=== PATIENT | female | born 2000 | race Caucasian/White ===

== ENCOUNTER 2020-12-01 11:40 | Observation (INO) ==
[2020-12-01] MEDS ORDERED: ONDANSETRON INJ 2 MG/ML 2 ML VIAL IV STA (12:09)
[2020-12-01] MEDS ORDERED: SODIUM CHLORIDE 0.9% 1000ML 1,000 ML IV STA (12:09)
--- NOTE | 2020-12-01 12:14 | Emergency Department Note ---
History of Present Illness General Chief complaint: Vomiting Stated complaint: VOMTING,JUST RELEASED FROM [facility] Time Seen by Provider: 12/01/20 11:55 History of Present Illness Maximum Pain Intensity: 6 20-year-old female who presents to the emergency department with complaint of nausea and vomiting since being released from the [facility] at 11 AM. The patient reports that she woke up this morning around 5 AM with nausea and vomiting. She denies any abdominal pain, urinary symptoms, constipation or diarrhea. She denies eating any unusual foods. Patient denies alcohol or illicit drug use while at the [facility]. Patient denies . The patient denies any history of GI issues, and currently rates her discomfort a 6 out of 10. Home Medications Medication Instructions Recorded Confirmed Type buspirone [BuSpar] 5 mg PO TID 12/01/20 12/01/20 History hydroxyzine HCl [Atarax] 10 mg PO DIRECTED 12/01/20 12/01/20 History melatonin 9 mg PO HS PRN 12/01/20 12/01/20 History venlafaxine [Effexor] 75 mg PO QAM 12/01/20 12/01/20 History Allergies Allergy/AdvReac Type Severity Reaction Status Date / Time No Known Allergies Allergy Unverified 12/01/20 14:23 Past Med/Surg History Medical History Anxiety Smoker Social History Smoking Status: Current every day smoker marital status: Single current occupational status: unemployed Feels Safe at Home: Yes Review of Systems 10 system review was performed and was negative except for pertinent positives and negatives as indicated in history of present illness Physical Exam Vital Signs Vital Signs - 24 hr 12/01/20 11:53 12/01/20 13:55 12/01/20 16:17 Temperature 36.0 C L Temperature Source Temporal Artery Scan Pulse Rate 75 Pulse Rate [Right Finger] 64 78 Respiratory Rate 21 20 20 Respiratory Effort / Characteristics Short of Breath Non-Labored Respiratory Depth Shallow Normal Blood Pressure 130/84 Blood Pressure [Right Arm] 125/79 129/71 Blood Pressure Mean 99 Blood Pressure Mean [Right Arm] 94 90 Pulse Oximetry 93 100 100 Oxygen Delivery Method Room Air Room Air Room Air Sepsis Recent Fever Within 48 Hours Yes Sepsis New/Unexplained Change in Mental Status No Sepsis Action Taken by Nursing No Action Required 12/01/20 17:59 Temperature Temperature Source Pulse Rate Pulse Rate [Right Finger] 62 Respiratory Rate 20 Respiratory Effort / Characteristics Respiratory Depth Blood Pressure Blood Pressure [Right Arm] Blood Pressure Mean Blood Pressure Mean [Right Arm] Pulse Oximetry 100 Oxygen Delivery Method Room Air Sepsis Recent Fever Within 48 Hours Sepsis New/Unexplained Change in Mental Status Sepsis Action Taken by Nursing CONSTITUTIONAL: Healthy and well nourished. Patient appears in moderate discomfort with an emesis bag. HEENT: Normocephalic, atraumatic. No scleral icterus or conjunctival injection/pallor. Mucous membranes are dry. NECK: Full active range of motion without discomfort. LYMPHATICS: No cervical chain adenopathy. RESPIRATORY: Clear to auscultation bilaterally with no wheezing, crackles, rhonchi or stridor. CARDIOVASCULAR: Regular rate and rhythm with no murmurs, rubs or gallops. GASTROINTESTINAL: Bowel sounds present in all quadrants. Patient has minimal and generalized abdominal tenderness to palpation. Negative McBurney's point tenderness. Negative CVA tenderness. MUSCULOSKELETAL: Full range of motion of all joints without discomfort. INTEGUMENTARY: No rash or other significant dermatologic conditions noted. HEMATOLOGIC: No ecchymosis or petechiae. PSYCHIATRIC: Flat affect. NEUROLOGIC: No focal neurologic deficits noted. Course Course Patient history and physical exam were performed. Nurses notes were reviewed. Vital signs were reviewed and were grossly normal. I also reviewed discharge paperwork that accompanies the patient. It appears that the patient was at the [facility] for 6 days, receiving treatment for anxiety. Patient did receive discharge prescriptions for BuSpar 5 mg 3 times daily, melatonin 9 mg nightly, Effexor 75 mg daily and Atarax 10 mg twice daily, and 30 mg at bedtime. IV access was established, and labs are drawn. The patient was hydrated with a liter normal saline, and administered IV Zofran for nausea. Shortly after the patient was administered the IV Zofran, the patient told her nurse that she would like to have something for anxiety. The patient was administered IV Ativan. Review of labs shows a moderate leukocytosis with a white count of over 16,000, left shift and 3% bands. Further review of labs shows a relatively normal CMP, LFTs and lipase. Serum was negative. The patient was unable to provide a urine sample throughout the early portion of her work-up. I was then contacted by the nurse reporting that she was still nauseated, and has requested Vistaril. The patient was administered IM Vistaril, and IV Benadryl. Given the patient's persistent symptoms, and elevated white count, I did recommend imaging of the abdomen to rule out other acute etiologies, and the patient was in agreement. CT with IV contrast of the abdomen and pelvis showed evidence for an uncomplicated appendicitis. The patient was unable to provide a urine sample. The case was discussed with Dr. Fabian, ED attending physician, who agrees with surgical consultation. The case was then discussed with Dr. Luevano (Jagjit Buck PA-C). Because several patients are requiring surgical intervention this afternoon, the patient was ordered Mefoxin IV antibiotics. COVID-19 testing was also ordered. Prior to the patient going to surgery, nursing staff reported that she was still complaining of nausea, and was administered IV Phenergan. Administered Medications Discontinued Medications Diphenhydramine HCl (Diphenhydramine 50 Mg/Ml Vial) 25 mg IV NOW STA Stop: 12/01/20 14:12 Last Admin: 12/01/20 14:16 Dose: 25 mg Documented by: [id number] Hydroxyzine HCl (Hydroxyzine Hcl Im Soln 50 Mg/Ml 1 Ml Vial) 50 mg IM NOW STA Stop: 12/01/20 14:12 Last Admin: 12/01/20 14:18 Dose: 50 mg Documented by: [id number] Sodium Chloride (Nss 1000ml) 1,000 mls @ 999 mls/hr IV .Q1H1M STA Stop: 12/01/20 13:09 Last Infusion: 12/01/20 18:05 Dose: 0 mls/hr Documented by: [id number] Admin: 12/01/20 12:36 Dose: 999 mls/hr Documented by: [id number] Lorazepam (Ativan) 1 mg in 2 mls @ 2 mls/min IV NOW STA Stop: 12/01/20 12:50 Last Admin: 12/01/20 13:03 Dose: 2 mls/min Documented by: [id number] Cefoxitin Sodium (Mefoxin) 2,000 mg in 60 mls @ 100 mls/hr IV NOW STA Stop: 12/01/20 16:32 Last Infusion: 12/01/20 18:00 Dose: 0 mls/hr Documented by: [id number] Admin: 12/01/20 16:34 Dose: 100 mls/hr Documented by: [id number] Promethazine HCl (Phenergan) 25 mg in 51 mls @ 204 mls/hr IV NOW STA Stop: 12/01/20 17:58 Last Admin: 12/01/20 18:00 Dose: 204 mls/hr Documented by: [id number] Ioversol (Optiray 300 100ml) 87 ml IV ONCE ONE Stop: 12/01/20 15:24 Last Admin: 12/01/20 15:23 Dose: 87 ml Documented by: [id number] Ondansetron HCl (Ondansetron Inj 2 Mg/Ml 2 Ml Vial) 4 mg IV NOW STA Stop: 12/01/20 12:10 Last Admin: 12/01/20 12:36 Dose: 4 mg Documented by: [id number] Medical Decision Making Medical Records Attestation: I reviewed the patient's medical records. Home Medications Current Medication List: was personally reviewed by me Laboratory Data Attestation: I reviewed the patient's lab results. Result diagrams: 12/01/20 12:23 12/01/20 12:23 Lab Results 12/01/20 12/01/20 12/01/20 Range/Units 12:23 12:23 12:23 WBC 16.25 H (4.8-10.8) K/uL RBC 4.67 (4.2-5.4) M/uL Hgb 13.8 (12.0-16.0) g/dL Hct 41.6 (37-47) % MCV 89.1 (80-100) fL MCH 29.6 (25-34) pg MCHC 33.2 (32-36) g/dL RDW Std Deviation 42.6 (36.4-46.3) fL RDW Coeff of Laura 13.1 (11.5-14.5) % Plt Count 270 (130-400) K/uL MPV 11.4 H (7.4-10.4) fL Immature Gran % (Auto) 0.2 % Neut % (Auto) 89.9 % Lymph % (Auto) 6.3 % [place] % (Auto) 3.4 % Eos % (Auto) 0.1 % Baso % (Auto) 0.1 % Neut # (Auto) 14.61 H (1.4-6.5) K/uL Lymph # (Auto) 1.02 L (1.2-3.4) K/uL [place] # (Auto) 0.55 (0.11-0.59) K/uL Eos # (Auto) 0.02 (0-0.5) K/uL Baso # (Auto) 0.02 (0-0.2) K/uL Immature Gran # (Auto) 0.03 H (0.00-0.02) K/uL Sodium 141 (136-145) mmol/L Potassium 3.6 (3.5-5.1) mmol/L Chloride 108 H (98-107) mmol/L Carbon Dioxide 25 (21-32) mmol/L Anion Gap 8.0 (3-11) BUN 15 (7-18) mg/dl Creatinine 0.69 (0.6-1.2) mg/dl Est Cr Clr Drug Dosing Not Reportable Est GFR ( Amer) 144.2 ml/min Est GFR (Non-Af Amer) 124.4 ml/min BUN/Creatinine Ratio 21.3 H (10-20) Glucose 111 H (70-99) mg/dl Calcium 10.0 (8.5-10.1) mg/dl Total Bilirubin 1.1 H (0.2-1) mg/dl AST 15 (15-37) U/L ALT 19 (12-78) U/L Alkaline Phosphatase 69 (45-117) U/L Total Protein 8.5 H (6.4-8.2) gm/dl Albumin 4.7 (3.4-5.0) gm/dl Globulin 3.8 (2.5-4.0) gm/dl Albumin/Globulin Ratio 1.2 (0.9-2) Lipase 91 (73-393) U/L HCG, Qual Negative (Negative) COVID-19 Eval Order SARS-CoV-2 (PCR) (Negative) 12/01/20 12/01/20 Range/Units 16:40 16:40 WBC (4.8-10.8) K/uL RBC (4.2-5.4) M/uL Hgb (12.0-16.0) g/dL Hct (37-47) % MCV (80-100) fL MCH (25-34) pg MCHC (32-36) g/dL RDW Std Deviation (36.4-46.3) fL RDW Coeff of Laura (11.5-14.5) % Plt Count (130-400) K/uL MPV (7.4-10.4) fL Immature Gran % (Auto) % Neut % (Auto) % Lymph % (Auto) % [place] % (Auto) % Eos % (Auto) % Baso % (Auto) % Neut # (Auto) (1.4-6.5) K/uL Lymph # (Auto) (1.2-3.4) K/uL [place] # (Auto) (0.11-0.59) K/uL Eos # (Auto) (0-0.5) K/uL Baso # (Auto) (0-0.2) K/uL Immature Gran # (Auto) (0.00-0.02) K/uL Sodium (136-145) mmol/L Potassium (3.5-5.1) mmol/L Chloride (98-107) mmol/L Carbon Dioxide (21-32) mmol/L Anion Gap (3-11) BUN (7-18) mg/dl Creatinine (0.6-1.2) mg/dl Est Cr Clr Drug Dosing Est GFR ( Amer) ml/min Est GFR (Non-Af Amer) ml/min BUN/Creatinine Ratio (10-20) Glucose (70-99) mg/dl Calcium (8.5-10.1) mg/dl Total Bilirubin (0.2-1) mg/dl AST (15-37) U/L ALT (12-78) U/L Alkaline Phosphatase (45-117) U/L Total Protein (6.4-8.2) gm/dl Albumin (3.4-5.0) gm/dl Globulin (2.5-4.0) gm/dl Albumin/Globulin Ratio (0.9-2) Lipase (73-393) U/L HCG, Qual (Negative) COVID-19 Eval Order Covid19 at [facility] SARS-CoV-2 (PCR) NEGATIVE (Negative) Imaging Data Attestation: I personally reviewed and interpreted this imaging study as follows: My Impression: My interpretation of a CT with IV contrast of the abdomen and pelvis shows evidence for an uncomplicated acute appendicitis. No other acute intra-abdominal findings are noted. Radiologist report was also reviewed. Radiologist's Impression: Abdomen/Pelvis CT 12/01/20 14:44 CT SCAN OF THE ABDOMEN AND PELVIS WITH IV CONTRAST CLINICAL HISTORY: Nausea and vomiting. Leukocytosis. COMPARISON STUDY: No priors. TECHNIQUE: Following the IV administration of 87 cc of Optiray 300, CT scan of the abdomen and pelvis is performed from the lung bases to the proximal femora. Images are reviewed in the axial, sagittal, and coronal planes. IV contrast was administered without complication. A dose lowering technique was utilized adhering to the principles of ALARA. The examination is modestly degraded by motion artifact. CT DOSE: 325.85 mGy.cm FINDINGS: Lung bases: The heart is normal in size and without pericardial effusion. The lung bases are clear. Liver: The contrast-enhanced liver is normal in size, contour, and attenuation. There is no intrahepatic biliary ductal dilatation. The hepatic veins and portal veins are patent. Gallbladder: Unremarkable. Spleen: Normal in size and attenuation. Pancreas: Unremarkable. Adrenal glands: Unremarkable. Kidneys: The contrast enhanced kidneys are normal in size and without hydronephrosis. The kidneys enhance symmetrically. Abdominal vasculature: The abdominal aorta is normal in course and caliber. Bowel: There is no bowel obstruction. The appendix is distended and fluid- filled measuring up to 9 mm in diameter as seen on image #322. The appendiceal wall is thickened and hyperemic and there is peripheral appendiceal inflammation. Findings are consistent with acute appendicitis. No organized fluid collection is seen to indicate abscess. Peritoneum: There is no intraperitoneal free air or abdominal ascites. Lymphadenopathy: None. Pelvic viscera: The bladder, uterus, and adnexa are normal as visualized. Skeletal structures: No lytic or blastic lesions are seen. IMPRESSION: 1. Findings are consistent with acute appendicitis. 2. There is no evidence of abscess or perforation. ACT 112: Negative or not required by law. Electronically signed by: Velasquez Hilario M.D. 12/01/2020 3:30 PM Prescription Drug Monitoring [place] Drug Monitoring Program reviewed and no issues identified Blood Pressure Blood Pressure Findings: Normal blood pressure MDM Narrative Patient presents to the emergency department with complaint of nausea and vomiting. The patient really did not complain of any abdominal pain on initial exam, but did have generalized abdominal tenderness to palpation. The patient does have a notable leukocytosis, but is afebrile. The patient has received multiple rounds of IV antiemetics. CT imaging does show evidence for an acute appendicitis. Patient denies any urinary symptoms, and although she has been unable to provide a urine sample, I do not suspect UTI. Urine was n egative. Additional laboratory studies are not suggestive of pancreatitis, cholecystitis or hepatitis. Impression & Plan Acute appendicitis Discharge Plan Visit Data Chief Complaint: Vomiting Stated Complaint: VOMTING,JUST RELEASED FROM [facility] ED Provider: Prakash Fabian ED Midlevel Provider: Bassam Avila Discharge Problem: Acute appendicitis Discharge Instructions Interventions: ED Discharge Assessment Last Done: 12/01/20 18:14 Forms Stand Alone Forms: My [facility] Prescriptions Prescriptions: No Action buspirone [BuSpar] 5 mg Tablet 5 mg PO TID RF: 0 venlafaxine [Effexor] 75 mg Tablet 75 mg PO QAM RF: 0 melatonin 3 mg Tablet 9 mg PO HS PRN (Reason: Sleep) RF: 0 hydroxyzine HCl [Atarax] 10 mg Tablet 10 mg PO DIRECTED RF: 0 Referrals Referrals: PCP,NO [Primary Care Provider] - Discharge Problem: Acute appendicitis Qualifiers: Acute appendicitis type: with localized peritonitis Appendicitis gangrene presence: without gangrene Appendicitis perforation presence: without perforation Appendicitis abscess presence: without abscess Qualified Code(s): K 35.30 - Acute appendicitis with localized peritonitis, without perforation or gangrene
[2020-12-01 12:34] LABS: Basophils # (auto) 0.02 K/uL (0-0.2); Basophils % (auto) 0.1 %; Eosinophils # (auto) 0.02 K/uL (0-0.5); Eosinophils % (auto) 0.1 %; Hematocrit (blood only) 41.6 % (37-47); Hemoglobin 13.8 g/dL (12.0-16.0); Immature Granulocytes # (auto) 0.03 K/uL (0.00-0.02); Immature Granulocytes % (auto) 0.2 %; Lymphocytes # (auto) 1.02 K/uL (1.2-3.4); Lymphocytes % (auto) 6.3 %; Mean Corpuscular Hemoglobin 29.6 pg (25-34); Mean Corpuscular Hgb Conc 33.2 g/dL (32-36); Mean Corpuscular Volume 89.1 fL (80-100); Mean Platelet Volume 11.4 fL (7.4-10.4); Monocytes # (auto) 0.55 K/uL (0.11-0.59); Monocytes % (auto) 3.4 %; Neutrophils # (auto) 14.61 K/uL (1.4-6.5); Neutrophils % (auto) 89.9 %; Platelet Count 270 K/uL (130-400); RDW Coefficient of Variation 13.1 % (11.5-14.5); RDW Standard Deviation 42.6 fL (36.4-46.3); Red Blood Count 4.67 M/uL (4.2-5.4); White Blood Count 16.25 K/uL (4.8-10.8)
[2020-12-01] MEDS ORDERED: LORazepam 1 MG/2 ML VIAL IV STA (12:49)
[2020-12-01 12:53] LABS: Alanine Aminotransferase 19 U/L (12-78); Albumin Level 4.7 gm/dl (3.4-5.0); Aspartate Aminotransferase 15 U/L (15-37); BUN Creatinine Ratio 21.3 (10-20); Blood Urea Nitrogen 15 mg/dl (7-18); Carbon Dioxide 25 mmol/L (21-32); Chloride 108 mmol/L (98-107); Est GFR (African American) 144.2 ml/min; Est GFR (Non-African American) 124.4 ml/min; Glucose 111 mg/dl (70-99); Lipase 91 U/L (73-393); Potassium 3.6 mmol/L (3.5-5.1); Sodium 141 mmol/L (136-145)
[2020-12-01 12:54] LABS: Pregnancy Test, Serum Negative (Negative)
[2020-12-01 12:56] LABS: Albumin Globulin Ratio 1.2 (0.9-2); Alkaline Phosphatase 69 U/L (45-117); Bilirubin,Total 1.1 mg/dl (0.2-1); Globulin 3.8 gm/dl (2.5-4.0); Total Protein 8.5 gm/dl (6.4-8.2)
[2020-12-01] MEDS ORDERED: diphenhydrAMINE 50 MG/ML VIAL IV STA (14:11)
[2020-12-01] MEDS ORDERED: hydrOXYzine HCL IM SOLN 50 MG/ML 1 ML VIAL IM STA (14:11)
[2020-12-01] MEDS ORDERED: OPTIRAY 300 100mL IV ONE (15:23)
--- NOTE | 2020-12-01 15:32 | CT Scan Report ---
CT SCAN OF THE ABDOMEN AND PELVIS WITH IV CONTRAST CLINICAL HISTORY: Nausea and vomiting. Leukocytosis. COMPARISON STUDY: No priors. TECHNIQUE: Following the IV administration of 87 cc of Optiray 300, CT scan of the abdomen and pelvi s is performed from the lung bases to the proximal femora. Images are reviewed in the axial, sagittal , and coronal planes. IV contrast was administered without complication. A dose lowering technique wa s utilized adhering to the principles of ALARA. The examination is modestly degraded by motion artifa ct. CT DOSE: 325.85 mGy.cm FINDINGS: Lung bases: The heart is normal in size and without pericardial effusion. The lung bases are clear. Liver: The contrast-enhanced liver is normal in size, contour, and attenuation. There is no intrahepa tic biliary ductal dilatation. The hepatic veins and portal veins are patent. Gallbladder: Unremarkable. Spleen: Normal in size and attenuation. Pancreas: Unremarkable. Adrenal glands: Unremarkable. Kidneys: The contrast enhanced kidneys are normal in size and without hydronephrosis. The kidneys enh ance symmetrically. Abdominal vasculature: The abdominal aorta is normal in course and caliber. Bowel: There is no bowel obstruction. The appendix is distended and fluid-filled measuring up to 9 m m in diameter as seen on image #322. The appendiceal wall is thickened and hyperemic and there is per ipheral appendiceal inflammation. Findings are consistent with acute appendicitis. No organized fluid collection is seen to indicate abscess. Peritoneum: There is no intraperitoneal free air or abdominal ascites. Lymphadenopathy: None. Pelvic viscera: The bladder, uterus, and adnexa are normal as visualized. Skeletal structures: No lytic or blastic lesions are seen. IMPRESSION: 1. Findings are consistent with acute appendicitis. 2. There is no evidence of abscess or perforation. ACT 112: Negative or not required by law. Electronically signed by: Velasquez Hilario M.D. 12/01/2020 3:30 PM
[2020-12-01] MEDS ORDERED: cefOXitin 2,000 MG/60 ML BAG IV STA (15:57)
--- NOTE | 2020-12-01 16:29 | Anesthesiology Consultation ---
Date of Service December 01, 2020 History Surgery Operation Date: 12/01/20 09:40 Proposed Procedures p Laparoscopic Cholecystectomy - Isidro Luevano DO, FACS Height/Weight Height: 5 ft 4 in Weight: 58.967 kg Allergies Allergy/AdvReac Type Severity Reaction Status Date / Time No Known Allergies Allergy Unverified 12/01/20 14:23 Medications Home Medications Medication Instructions Recorded Confirmed Last Taken buspirone [BuSpar] 5 mg PO TID 12/01/20 12/01/20 12/01/20 hydroxyzine HCl [Atarax] 10 mg PO DIRECTED 12/01/20 12/01/20 12/01/20 melatonin 9 mg PO HS PRN 12/01/20 12/01/20 Unknown venlafaxine [Effexor] 75 mg PO QAM 12/01/20 12/01/20 12/01/20 Social History Smoking Status: Current every day smoker Physical Exam Vital Signs Last Vital Signs Temp 36.0 C L 12/01/20 11:53 Pulse 78 12/01/20 16:17 Resp 20 12/01/20 16:17 BP 129/71 12/01/20 16:17 Pulse Ox 100 12/01/20 16:17 Testing Laboratory Results 12/01/20 12:23 12/01/20 12:23
--- NOTE | 2020-12-01 16:35 | History & Physical Report ---
Date of Service December 01, 2020 Assessment & Plan (1) Acute appendicitis: This is a 20y F with recent release from the [facility] who presents to the [facility] ED on 12/01/20 with complaints of abdominal pain, nausea/vomiting. Workup in the ER with a CT a/p is consistent with acute appendicitis. WBC 16. VSS. Patient is tender to palpation in the RLQ. Discussions in place with patient and we will proceed with taking patient to the OR for a laparoscopic appendectomy. Plan to keep NPO with IVF. Pre-op abx will be given. Covid test is ordered and pending. Dr. Luevano has obtained consent. History of Present Illness Primary Care Provider: NO PCP This is a 20y F with recent release from the [facility] who presents to the [facility] ED on 12/01/20 with complaints of abdominal pain, nausea/vomiting. Patient states her abdominal pain woke up her this morning around 5am. She says the pain is "all-over" the abdomen, but when asked to point where it's the worst she points towards her RLQ. In the ER patient underwent a CT a/p that showed findings consistent with acute appendicitis. Patient denies any prior history of abdominal surgery. Says she does not smoke and drinks "a little bit" of alcohol on occasion. Allergies Allergy/AdvReac Type Severity Reaction Status Date / Time No Known Allergies Allergy Unverified 12/01/20 14:23 Home Medications Medication Instructions Recorded Confirmed Type buspirone [BuSpar] 5 mg PO TID 12/01/20 12/01/20 History hydroxyzine HCl [Atarax] 10 mg PO DIRECTED 12/01/20 12/01/20 History melatonin 9 mg PO HS PRN 12/01/20 12/01/20 History venlafaxine [Effexor] 75 mg PO QAM 12/01/20 12/01/20 History Past Med/Surg History Social History Smoking Status: Current every day smoker Feels Safe at Home: Yes Review of Systems Constitutional: no fever and no chills Respiratory: no dyspnea Gastrointestinal: + abdominal pain, + nausea and + vomiting Physical Exam Physical Exam: awake Constitutional: uncomfortable appearing Respiratory: normal respiratory effort Gastrointestinal (Abdomen): Percussion/Palpation: + abdomen tender (ttp in the rlq) and abdomen soft Results & Data Results & Data ([facility]) Vital Signs (Past 12 Hours) Vital Signs Temp Pulse Pulse Resp BP BP Pulse Ox 12/01/20 16:17 78 20 129/71 100 12/01/20 13:55 64 20 125/79 100 12/01/20 11:53 36.0 C L 75 21 130/[address] SCAN OF THE ABDOMEN AND PELVIS WITH IV CONTRAST CLINICAL HISTORY: Nausea and vomiting. Leukocytosis. COMPARISON STUDY: No priors. TECHNIQUE: Following the IV administration of 87 cc of Optiray 300, CT scan of the abdomen and pelvis is performed from the lung bases to the proximal femora. Images are reviewed in the axial, sagittal, and coronal planes. IV contrast was administered without complication. A dose lowering technique was utilized adhering to the principles of ALARA. The examination is modestly degraded by motion artifact. CT DOSE: 325.85 mGy.cm FINDINGS: Lung bases: The heart is normal in size and without pericardial effusion. The lung bases are clear. Liver: The contrast-enhanced liver is normal in size, contour, and attenuation. There is no intrahepatic biliary ductal dilatation. The hepatic veins and portal veins are patent. Gallbladder: Unremarkable. Spleen: Normal in size and attenuation. Pancreas: Unremarkable. Adrenal glands: Unremarkable. Kidneys: The contrast enhanced kidneys are normal in size and without hydronephrosis. The kidneys enhance symmetrically. Abdominal vasculature: The abdominal aorta is normal in course and caliber. Bowel: There is no bowel obstruction. The appendix is distended and fluid- filled measuring up to 9 mm in diameter as seen on image #322. The appendiceal wall is thickened and hyperemic and there is peripheral appendiceal inflammation. Findings are consistent with acute appendicitis. No organized fluid collection is seen to indicate abscess. Peritoneum: There is no intraperitoneal free air or abdominal ascites. Lymphadenopathy: None. Pelvic viscera: The bladder, uterus, and adnexa are normal as visualized. Skeletal structures: No lytic or blastic lesions are seen. IMPRESSION: 1. Findings are consistent with acute appendicitis. 2. There is no evidence of abscess or perforation. ACT 112: Negative or not required by law. Electronically signed by: Velasquez Hilario M.D. 12/01/2020 3:30 PM Supervising Physician Co-Signing Physician Notes Patient seen and examined, labs and imaging reviewed, agree with above. 20-year-old female with CT evidence of acute appendicitis. On exam she is tender to palpation in the right lower quadrant with localized guarding. I personally reviewed the CT scan and agree with the assessment of acute appendicitis. Plan for laparoscopic appendectomy. Risk of the procedure were reviewed to include but not limited to bleeding, infection, normal appendix, conversion to open, damage to surrounding structures, need for future or more extensive surgery, and the risk of anesthesia. Preoperative antibiotics given. The diagnosis, details of the procedure and recovery, and plan of care discussed with the patient, all questions were answered, the patient expressed understanding agrees with plan of care as stated PG Care Time/CCT Total # of Minutes Spent Total Time Spent with Patient: Total time spent is greater than 50% in coordination of care (as documented) at patient's floor/unit and/or counseling patient: Coding Level of Care Code 62348 Initial Inpt Care Lvl 2 Diagnoses Acute appendicitis K35.30 Acute appendicitis type: with localized peritonitis Appendicitis abscess presence: without abscess Appendicitis gangrene presence: without gangrene Appendicitis perforation presence: without perforation (1) Acute appendicitis Acute appendicitis type: with localized peritonitis Appendicitis abscess presence: without abscess Appendicitis gangrene presence: without gangrene Appendicitis perforation presence: without perforation Qualified Code(s): K35.30 - Acute appendicitis with localized peritonitis, without perforation or gangrene
[2020-12-01] MEDS ORDERED: BUPIVACAINE 0.5 % 5 MG/1 ML MPF 30ML VIAL ONE (17:14)
[2020-12-01] MEDS ORDERED: ONDANSETRON INJ 2 MG/ML 2 ML VIAL ONE ×2 (17:24→20:05)
[2020-12-01] MEDS ORDERED: LIDOCAINE 2% 2 ML VIAL/AMP(20MG/ML) INFIL ONE (17:24)
[2020-12-01] MEDS ORDERED: ROCURONIUM BROMIDE 10 MG/ML 5 ML VIAL IV ONE (17:24)
[2020-12-01] MEDS ORDERED: LARYING-O-JET KIT (LTA) ONE (17:24)
[2020-12-01] MEDS ORDERED: PROPOFOL IV EMULSION 10 MG/ML 20 ML VIAL IV ONE (17:24)
[2020-12-01] MEDS ORDERED: DEXAMETHASONE SOD INJ 4 MG/ML VIAL ONE (17:24)
[2020-12-01] MEDS ORDERED: PROMETHAZINE 25 MG/51 ML BAG IV STA (17:44)
[2020-12-01] MEDS ORDERED: ATROPINE SULFATE 0.1 MG/ML 10ML SYR IV PRN ×2 (18:33→20:10)
[2020-12-01] MEDS ORDERED: LABETALOL HCL IV 5 MG/ML 20ML IV PRN (18:33)
[2020-12-01] MEDS ORDERED: ONDANSETRON INJ 2 MG/ML 2 ML VIAL IV PRN ×2 (18:33→20:10)
[2020-12-01] MEDS ORDERED: MEPERIDINE HCL 25 MG/ML CARP/VIAL IV PRN (18:33)
[2020-12-01] MEDS ORDERED: MIDAZOLAM HCL 1 MG/ML 2ML VIAL ONE (18:33)
[2020-12-01] MEDS ORDERED: fentaNYL citrate 100 MCG/2 ML VIAL ONE ×3 (18:33→20:13)
[2020-12-01] MEDS ORDERED: HYDROmorphone INJ 1 MG/ML SYRINGE IV PRN (18:33)
[2020-12-01] MEDS ORDERED: fentaNYL citrate 100 MCG/2 ML VIAL IV PRN (18:33)
[2020-12-01] MEDS ORDERED: PHENYLEPHRINE 100MCG/ML 5ML SYR IV PRN (18:33)
[2020-12-01] MEDS ORDERED: ePHEDrine sulfate 50 MG/ML AMP IV PRN (18:33)
[2020-12-01] MEDS ORDERED: LACTATED RINGER'S 1,000 ML IV SCH (19:00)
--- NOTE | 2020-12-01 19:37 | Operative Report ---
PG Post Operative Report Pre & Post Diagnosis Operation Date: 12/01/20 09:40 Pre-Op Diagnosis: Acute appendicitis Post-Op Diagnosis: Acute appendicitis I identified the patient and participated in the time-out.: Yes Procedure Operation Date: 12/01/20 09:40 Actual Procedures p Laparoscopic Appendectomy(Not Applicable) - Isidro Luevano DO, FACS Surgeon Isidro Luevano DO, FACS Compensation Manager Denilson Angel Estimated Blood Loss 5 Findings Consistent with Post-Op Diagnosis Acute nonperforated appendicitis. Good hemostasis. Specimens Appendix Anesthesia Type General Complications none Disposition Accompanied Patient To Recovery: No Disposition: Recovery Room Indications 20-year-old female presented with signs symptoms of appendicitis confirmed by CT scan. Plan for laparoscopic appendectomy. The risks of the procedure were discussed, all questions were answered, and the patient agreed to proceed with surgery as planned. Description of Procedure The patient was properly identified, consented, and taken to the operating room where she was placed in the supine position. General endotracheal anesthesia was induced. SCDs and a safety belt were placed. Preoperative antibiotics were administered. A Ross catheter was not placed. The patient's abdomen was prepped and draped in the standard sterile fashion. Surgical timeout was performed and all parties were in agreement that this was the correct patient and procedure to be performed and we continued as planned. A curvilinear infraumbilical incision was made with electrocautery and deepened down to the fascia with blunt dissection. The base of the umbilicus was grasped with a Jose and elevated towards the ceiling. An incision was made in the midline fascia with a knife and entry into the peritoneum was confirmed. Stay suture of 0 Vicryl was placed and a Marquez trocar was inserted. The abdomen was insufflated with carbon dioxide which the patient tolerated without incident. The laparoscope was inserted and no damage from initial trocar placement was noted, no gross abnormalities were noted within the 4 quadrants the abdomen. 5 mm ports were then placed in the left lower quadrant with care not to damage the epigastric vessels, and in the suprapubic midline with care not to damage the bladder. The patient was placed in Trendelenburg position and rotated towards the left. The small bowel was swept away from the right lower quadrant. The cecum was grasped with an atraumatic grasper exposing the appendix. The appendix was mildly inflamed and there was no evidence of perforation. There was no fluid in the pelvis. A window was created between the base of the appendix and the mesoappendix. A nolan loaded endoscopic stapler was then used to divide the appendix at its base. A nolan load was then used to divide the mesoappendix. Hemostasis was good. The appendix was placed in an Endo Catch bag and removed through the umbilical port site. The right lower quadrant and pelvis was irrigated and hemostasis was found to be good. 5 mm trochars were removed under direct visualization and the abdomen was allowed to collapse. The umbilical port site fascia was closed with 0 Vicryl suture. The wound was irrigated, and the skin of all ports was closed with 4-0 Monocryl subcuticular sutures. Dermabond was placed over the wounds. The patient was extubated in the operating room and taken to the PACU where she recovered without apparent incident. All sponge, instrument and needle counts were correct at the conclusion of the procedure. The patient tolerated the procedure well. The physician's library serials assistant was present and scrubbed for the entire to the case. He was critical in positioning the patient, prepping and draping, retraction and exposure, driving the laparoscope, removal of the appendix, closure the incisions, placement of the dressings. I attest to the content of the Intraoperative Record and any orders documented therein. Any exceptions are noted below.
[2020-12-01] MEDS ORDERED: KETOROLAC 30 MG/ML VIAL IV PRN (20:10)
[2020-12-01] MEDS ORDERED: PROMETHAZINE HCL 12.5 MG in SODIUM CHLORIDE 0.9% 50 ML IV PRN (20:10)
[2020-12-01] MEDS: fentaNYL citrate 100 MCG/2 ML VIAL IV PRN ×2 (20:13→20:18)
--- NOTE | 2020-12-01 20:46 | Anesthesiology Progress Note ---
Date of Service December 01, 2020 Anesthesia Post Procedure Vital Signs Vital Signs: Temp Pulse Pulse Pulse Resp BP BP 12/01/20 20:40 36.9 C 71 14 130/80 12/01/20 20:30 82 14 133/85 12/01/20 20:20 73 14 135/83 12/01/20 20:00 37.0 C 73 14 122/72 12/01/20 18:14 36.9 C 81 20 12/01/20 17:59 62 20 12/01/20 16:17 78 20 12/01/20 13:55 64 20 12/01/20 11:53 36.0 C L 75 21 130/84 BP Pulse Ox 12/01/20 20:40 97 12/01/20 20:30 97 12/01/20 20:20 96 12/01/20 20:00 96 12/01/20 18:14 99/76 L 100 12/01/20 17:59 100 12/01/20 16:17 129/71 100 12/01/20 13:55 125/79 100 12/01/20 11:53 93 Transfer of Care Handoff Completed per policy Notes Mental Status: alert / awake / arousable Patient Amnestic to Procedure: Yes Nausea / Vomiting: adequately controlled Pain: adequately controlled Airway Patency, RR, SpO2: stable & adequate BP & HR: stable & adequate Hydration State: stable & adequate Anesthetic Complications: no major complications apparent
[2020-12-01] MEDS: ONDANSETRON INJ 2 MG/ML 2 ML VIAL IV PRN (21:30)
[2020-12-01] MEDS: MoRPHine SULFATE 2 MG/ML CARP IV PRN (21:30)
[2020-12-01] MEDS: LACTATED RINGER'S 1,000 ML IV SCH (21:30)
[2020-12-01] MEDS: ACETAMINOPHEN 1,000 MG/100 ML VIAL IV SCH (22:21)
[2020-12-01] MEDS: busPIRone 5 MG TAB PO SCH (22:22)
[2020-12-02] MEDS: MoRPHine SULFATE 2 MG/ML CARP IV PRN ×4 (01:19→22:37)
[2020-12-02] MEDS: ONDANSETRON INJ 2 MG/ML 2 ML VIAL IV PRN (03:29)
[2020-12-02] MEDS: oxyCODONE HCL SOLN 5 MG/5 ML UDC PO PRN ×2 (03:29→18:19)
[2020-12-02] MEDS: ACETAMINOPHEN 1,000 MG/100 ML VIAL IV SCH ×3 (05:46→20:31)
[2020-12-02] MEDS: LACTATED RINGER'S 1,000 ML IV SCH ×2 (08:02→17:51)
[2020-12-02] MEDS: busPIRone 5 MG TAB PO SCH ×3 (08:23→20:32)
[2020-12-02] MEDS: VENLAFAXINE HCL 37.5 MG TAB PO SCH (08:23)
--- NOTE | 2020-12-02 08:25 | Surgery Progress Note ---
Date of Service December 02, 2020 Assessment & Plan (1) Acute appendicitis: POD#1 laparoscopic appendectomy Patient clinically feeling much better compared to yesterday Abdomen soft, non distended, incisions c/d/i Will advance diet as tolerates Pain controlled on current regimen Will plan on discharge to home later today, dispo instructions reviewed. She lives two hours away so will discuss follow up options with patient Admission and Anticipated Discharge Date Admission Date: December 01, 2020 Supervising Physician Co-Signing Physician Notes Agree with above. POD #1 laparoscopic appendectomy. She is still having some nausea and does not tolerated much in the way of food. We will continue to monitor her, due to the distance that she lives we will likely discharge her tomorrow morning if she is tolerating breakfast. On exam she is afebrile with stable vitals. Her abdomen is soft, appropriately tender to palpation. Incisions healing well. She feels better than yesterday. We will reassess this afternoon, likely discharge tomorrow. Wound care instructions and activity restrictions reviewed. We will call her instead of having her follow-up in the office. Subjective The patient is feeling well today. Her abdominal pain is much improved. She feels less dizzy and nauseated than yesterday. She is tolerating clear liquids thus far. Physical Exam Physical Exam: awake/alert Constitutional: well developed and well nourished; no acute distress Respiratory: normal respiratory effort Gastrointestinal (Abdomen): Inspection/Auscultation: + abdominal surgical incision (c/d/i, no signs of infection); abdomen not distended Percuss ion/Palpation: + abdomen tender (mild discomfort to palpation domingo-incisionally) and abdomen soft Results & Data ([facility]) Vital Signs (Past 12 Hours) Vital Signs Temp Pulse Pulse Pulse Pulse Resp BP 12/02/20 07:35 37.2 C 89 16 101/52 L 12/02/20 03:18 37.1 C 99 H 20 12/01/20 22:55 37.3 C 112 H 20 132/70 12/01/20 21:56 37 C 95 H 16 115/75 12/01/20 21:25 37.3 C 83 14 120/74 12/01/20 20:40 36.9 C 71 14 130/80 12/01/20 20:30 82 14 133/85 BP Pulse Ox 12/02/20 07:35 97 12/02/20 03:18 128/73 100 12/01/20 22:55 100 12/01/20 21:56 99 12/01/20 21:25 99 12/01/20 20:40 97 12/01/20 20:30 97 PG Care Time/CCT Total # of Minutes Spent Total Time Spent with Patient: Total time spent is greater than 50% in coordination of care (as documented) at patient's floor/unit and/or counseling patient: Coding Level of Care Code None Diagnoses Acute appendicitis K35.30 Acute appendicitis type: with localized peritonitis Appendicitis abscess presence: without abscess Appendicitis gangrene presence: without gangrene Appendicitis perforation presence: without perforation (1) Acute appendicitis Acute appendicitis type: with localized peritonitis Appendicitis abscess presence: without abscess Appendicitis gangrene presence: without gangrene Appendicitis perforation presence: without perforation Qualified Code(s): K35.30 - Acute appendicitis with localized peritonitis, without perforation or gangrene
--- NOTE | 2020-12-02 08:35 | Anesthesiology Progress Note ---
Date of Service December 02, 2020 Anesthesia Post Procedure Vital Signs Vital Signs: Temp Pulse Pulse Pulse Pulse Pulse Resp 12/02/20 07:35 37.2 C 89 16 12/02/20 03:18 37.1 C 99 H 20 12/01/20 22:55 37.3 C 112 H 20 12/01/20 21:56 37 C 95 H 16 12/01/20 21:25 37.3 C 83 14 12/01/20 20:40 36.9 C 71 14 12/01/20 20:30 82 14 12/01/20 20:20 73 14 12/01/20 20:00 37.0 C 73 14 12/01/20 19:55 37.1 C 78 16 12/01/20 18:14 36.9 C 81 20 12/01/20 17:59 62 20 12/01/20 16:17 78 20 12/01/20 13:55 64 20 12/01/20 11:53 36.0 C L 75 21 BP BP BP Pulse Ox 12/02/20 07:35 101/52 L 97 12/02/20 03:18 128/73 100 12/01/20 22:55 132/70 100 12/01/20 21:56 115/75 99 12/01/20 21:25 120/74 99 12/01/20 20:40 130/80 97 12/01/20 20:30 133/85 97 12/01/20 20:20 135/83 96 12/01/20 20:00 122/72 96 12/01/20 19:55 126/81 100 12/01/20 18:14 99/76 L 100 12/01/20 17:59 100 12/01/20 16:17 129/71 100 12/01/20 13:55 125/79 100 12/01/20 11:53 130/84 93 Pain Intensity Bilateral Abdomen: Pain Intensity: 4 Notes Mental Status: alert / awake / arousable and participated in evaluation Patient Amnestic to Procedure: Yes Nausea / Vomiting: adequately controlled Pain: adequately controlled Airway Patency, RR, SpO2: stable & adequate BP & HR: stable & adequate Hydration State: stable & adequate Anesthetic Complications: no major complications apparent
[2020-12-03] MEDS: LACTATED RINGER'S 1,000 ML IV SCH (04:16)
[2020-12-03] MEDS: ACETAMINOPHEN 1,000 MG/100 ML VIAL IV SCH ×2 (04:25→13:09)
[2020-12-03] MEDS: oxyCODONE HCL SOLN 5 MG/5 ML UDC PO PRN (05:13)
--- NOTE | 2020-12-03 07:42 | Surgery Progress Note ---
Date of Service December 03, 2020 Assessment & Plan (1) Acute appendicitis: POD#2 laparoscopic appendectomy Overall recovering well. VSS Tolerating a diet; no further nausea/vomiting. Pain controlled Will plan on discharge to home today, lives 2 hours away so she is coordinating a ride Dipso instructions given, our office will give patient a call for a phone follow up Admission and Anticipated Discharge Date Admission Date: December 01, 2020 Supervising Physician Co-Signing Physician Notes Patient seen and examined, agree with above. POD #2 laparoscopic appendectomy. Feels much better than yesterday. She has had no more nausea. She still does not have much of an appetite but has been able to keep down liquids and a small amount of solids. Pain she had prior to surgery is gone. On exam she is afebrile stable vitals, probably tender to palpation in the abdomen, incisions with Dermabond and out evidence of infection. Plan to discharge to home today. Due to the distance she lives from the clinic we will call her in 2 weeks to update her with pathology results and do a virtual check-in. She can call us if she has any issues. Active restrictions and wound care instructions reviewed. Subjective Patient says she feels well this AM. Tolerated some dinner yesterday. Denies further nausea/vomiting. Says her pain is manageable. Physical Exam Physical Exam: awake/alert Respiratory: normal respiratory effort Gastrointestinal (Abdomen): Inspection/Auscultation: + abdominal surgical incision (c/d/i with dermabond overtop; no signs of infection); abdomen not distended Percussion/Palpation: + abdomen tender (mild ttp domingo-incisionally) and abdomen soft Results & Data ([facility]) Vital Signs (Past 12 Hours) Vital Signs Temp Pulse Pulse Resp BP Pulse Ox 12/03/20 07:00 36.8 C 73 16 109/70 99 12/02/20 22:30 36.9 C 93 H 16 107/65 100 PG Care Time/CCT Total # of Minutes Spent Total Time Spent with Patient: Total time spent is greater than 50% in coordination of care (as documented) at patient's floor/unit and/or counseling patient: Coding Level of Care Code None Diagnoses Acute appendicitis K35.30 Acute appendicitis type: with localized peritonitis Appendicitis abscess presence: without abscess Appendicitis gangrene presence: without gangrene Appendicitis perforation presence: without perforation (1) Acute appendicitis Acute appendicitis type: with localized peritonitis Appendicitis abscess presence: without abscess Appendicitis gangrene presence: without gangrene Appendicitis perforation presence: without perforation Qualified Code(s): K35.30 - Acute appendicitis with localized peritonitis, without perforation or gangrene
[2020-12-03] MEDS: VENLAFAXINE HCL 37.5 MG TAB PO SCH (08:29)
[2020-12-03] MEDS: busPIRone 5 MG TAB PO SCH ×2 (08:29→13:12)
--- NOTE | 2020-12-09 13:51 | Discharge Summary ---
Date of Service December 09, 2020 Admission HPI Per Admitting Provider This is a 20y F with recent release from the [place] who presents to the [facility] ED on 12/01/20 with complaints of abdominal pain, nausea/vomiting. Patient states her abdominal pain woke up her this morning around 5am. She says the pain is "all-over" the abdomen, but when asked to point where it's the worst she points towards her RLQ. In the ER patient underwent a CT a/p that showed findings consistent with acute appendicitis. Patient denies any prior history of abdominal surgery. Says she does not smoke and drinks "a little bit" of alcohol on occasion. Principal Diagnosis acute appendicitis, non perforated Discharge Data Allergies Allergy/AdvReac Type Severity Reaction Status Date / Time No Known Allergies Allergy Unverified 12/01/20 14:23 Consultations 12/01/20 15:55 ED Decision to Admit Stat Procedures Performed Operation Date: 12/01/20 09:40 Actual Procedures p Laparoscopic Appendectomy(Not Applicable) - Isidro Luevano DO, FACS Ordered Studies 12/01/20 14:44 CT abd pelvis IV con only Stat Hospital Course (1) Acute appendicitis: 20 year old female underwent uncomplicated laparoscopic appendectomy on evening of 01 Dec 2020. She was admitted for observation. Her course was uncomplicated. At the time of discharge her pain was controlled, her symptoms were improved, and she was tolerating a regular diet. She was discharged to home with appropriate instructions. Due to the distance that she was travelling, we planned to call her with follow up and pathology results. Total Time Total Time Spent Total Time Spent (In Minutes): 45 Discharge Plan Discharge Items Patient Disposition: Home - Self-Care Reason For Visit: APPY Discharge Diagnosis: laparoscopic appendectomy Activity: Per Instructions section Lifting: No more than 10 pounds Bathing Comment: may shower; no soaking in tubs/pools Exercise/Sports: Wait until after follow-up appointment Driving/Machine Use: do not resume driving while taking narcotics for pain Non-emergency contact: Surgeon Call non-emergency contact if: you have any medication questions, your symptoms worsen, your pain is not controlled, your pain is worsening, your pain is concerning for you, you have a fever, your temperature is above 101.5, your woun d has increased redness, your wound has increased drainage and your wound pain has increased Follow-up/Referrals: Isidro Luevano, JAMAR VIVAR [Physician] - (Our office will call you in a week or two to check up to you and review your pathology results.) PCP,NO [Primary Care Provider] - Diet: Regular Addtl Attending Provider Instructions: Please follow up with your Primary Care Provider within 1 week to have them check up on how you are doing after surgery. In addition, our office will call you in about 1-2 weeks and review your surgical pathology and see how you are doing. You may purchase Ibuprofen over the counter if needed for additional pain control over the next few days. Take with food. You have been prescribed a narcotic called Percocet if needed for moderate- severe pain. Do NOT take Tylenol concurrently with Percocet as they both contain Acetaminophen, and you should not exceed >3 grams of Acetaminophen within a 24 hour time period. -If you are not taking Percocet for pain you may take Tylenol. Pending Studies at Discharge: Yes Studies:: surgical pathology Visit Report Forms: Smoking Cessation Stand-Alone Forms: [facility], Opioid Pain Management, Work/School Release, Smoking Cessation Medications and DC Order Prescriptions: New oxycodone-acetaminophen [Percocet] 5-325 mg tablet 1 - 2 tab PO .q4-6h PRN (Reason: pain, for initial therapy, max 6 tabs per day) Qty: 10 RF: 0 ondansetron HCl [Zofran] 4 mg tablet 4 mg PO Q8H PRN (Reason: nausea and vomiting) Qty: 10 RF: 0 Continued buspirone 5 mg Tablet 5 mg PO TID RF: 0 venlafaxine 75 mg Tablet 75 mg PO QAM RF: 0 melatonin 3 mg Tablet 9 mg PO HS PRN (Reason: Sleep) RF: 0 hydroxyzine HCl 10 mg Tablet 10 mg PO DIRECTED RF: 0 Discharge Orders: Discharge Order (Routine); Ordered 12/03/20 Ordered By: Tiffanie Hanley/Other Patient Handouts: After an Appendectomy, What Is Appendicitis? Admission Data Admit Date/Time: 12/01/20 19:49 Attending Provider: Isidro Luevano Admit Provider: Isidro Luevano Primary Care Provider: PCP,NO Other Providers: Isidro Luevano Other Interventions: Discharge Summary Assessment (RN) Last Done: 12/03/20 12:43 Coding Level of Care Code D/C Day Management >30 mins Diagnoses Acute appendicitis K35.30 Acute appendicitis type: with localized peritonitis Appendicitis abscess presence: without abscess Appendicitis gangrene presence: without gangrene Appendicitis perforation presence: without perforation
== END 2020-12-03 14:31 | disposition home or self-care (01) ==
LOC: ED 11:40 → 3E 11:40 → ED 18:14
DX: F17.210 Nicotine dependence, cigarettes, uncomplicated; K35.30 Acute appendicitis with localized peritonitis, without perforation or gangrene; F12.90 Cannabis use, unspecified, uncomplicated; Z79.899 Other long term (current) drug therapy